=== PATIENT | male | born 1965 | race Caucasian/White ===

== ENCOUNTER 2021-03-26 21:23 | Emergency (ER) | payer OTHER ==
[~2021-03-26] VITALS: Ht 193 cm; Wt 117.3 kg
[2021-03-26 21:33] VITALS: BP 142/90
[2021-03-26] MEDS ORDERED: DIPH,PERTUSS(ACELL),TET VAC/PF 0.5 ML SYRINGE. VAX IM ONE (21:45)
[2021-03-26] MEDS ORDERED: LIDOCAINE 1%/EPI 1:100,000 20 ML VIAL. INJ ONE (21:45)
[2021-03-26] MEDS ORDERED: AMOX1TAB61 PO (23:07)
--- NOTE | 2021-03-26 23:08 | PHYS DOC ---
Past Medical History Past Surgical History: Other Additional Past Surgical Histo: HERNIA, DETACHED RETINA, CATARACT SURGERY, VASECTOMY, BLADDER CANCER Smoking Status: Current Every Day Smoker Alcohol Use: Rarely General Adult EDM: Chief Complaint: LACERATION/AVULSION HPI: HPI: Patient is a 56 year old male who presents with a laceration to his left hand. 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 The metal cut into his left palm. Left stellate laceration. Happened around 2 PM earlier today. He cleansed the area well with soap and water several times. Tetanus is not up-to-date. States that the piece of metal was dirty and greasy. Review of Systems: Review of Systems: Constitutional: Denies fever or chills. [] HENT: Denies nasal congestion or sore throat. [] Respiratory: Denies cough or shortness of breath. [] Cardiovascular: Denies chest pain Integument: Reports laceration to left palm Neurologic: Denies headache, focal weakness or sensory changes. [] Psychiatric: Denies depression or anxiety. [] Heart Score: C/O Chest Pain: No Risk Factors: Risk Factors: DM, Current or recent (<one month) smoker, HTN, HLP, family history of CAD, obesity. Risk Scores: Score 0 - 3: 2.5% MACE over next 6 weeks - Discharge Home Score 4 - 6: 20.3% MACE over next 6 weeks - Admit for Clinical Observation Score 7 - 10: 72.7% MACE over next 6 weeks - Early Invasive Strategies Current Medications: Current Medications Medications (Trade) Dose Ordered Sig/Yang Start Time Stop Time Status Last Admin Dose Admin Diphtheria/ Tetanus/Acell Pertussis (ADACEL TDap SYRINGE) 0.5 ml ONCE ONCE 03/26/21 21:45 03/26/21 21:47 DC 03/26/21 22:14 0.5 ML Lidocaine/ Epinephrine (LIDOCAINE 1%-EPI 1:100,000 Multi-Dose) 20 ml 1X ONCE 03/26/21 21:45 03/26/21 21:47 DC 03/26/21 22:13 20 ML Allergies: Allergies: Allergies Coded Allergies Type Severity Reaction Last Updated Verified No Known Drug Allergies 03/26/21 No Physical Exam: PE: Constitutional: Well developed, well nourished, no acute distress, non-toxic appearance. [] HENT: Normocephalic, atraumatic Eyes: conjunctiva normal, no discharge. [] Cardiovascular: Regular heart rate Lungs & Thorax: Normal work of breathing Skin: Stellate laceration to the left palm just distal to the thenar eminence. No foreign body. No evidence of muscular involvement. Fat protruding. Cap refill to all 5 fingers brisk, less than 2 seconds. Neurologic: Alert and oriented X 3, normal motor function, normal sensory function, no focal deficits noted. 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 Distal sensation to the fin gers intact. [] Psychologic: Affect normal, judgement normal, mood normal. [] Current Patient Data: Vital Signs: Vital Signs Date Time Temp Pulse Resp B/P (MAP) Pulse Ox O2 Delivery O2 Flow Rate FiO2 03/26/21 21:33 98.2 98 20 142/90 (107) 98 Room Air 98.2 EKG: EKG: [] Radiology/Procedures: Radiology/Procedures: Indication: Stellate laceration of the left palm Procedure: The patient was placed in the appropriate position and anesthesia around the laceration was anesthetized with 1% lidocaine with epinephrine. Good anesthesia was achieved with local. The area was then irrigated with copious amount of sterile saline.. The laceration was closed with 4-0 Prolene suture. Total number of sutures 10. Total repaired wound length: Accounting for all areas of the stellate laceration, approximately 8 cm repaired. Other Items: None The patient tolerated the procedure well. Complications: None.[] Course & Med Decision Making: Course & Med Decision Making Pertinent Labs and Imaging studies reviewed. (See chart for details) Patient 56-year-old male presents with a stellate laceration to his left hand. Cut on a greasy/dirty piece of steel. Neurovascularly intact. No evidence of foreign body. Still was intact, do not feel that x-ray would be beneficial in ruling out foreign body Closed as above. Tetanus updated. Given high risk of infection, will be put on prophylactic antibiotics with Augmentin. [id number] Moe Disclaimer: Moe Disclaimer: This electronic medical record was generated, in whole or in part, using a voice recognition dictation system. Departure Departure Impression: Primary Impression: Laceration of palm Disposition: HOME / SELF CARE / HOMELESS Condition: STABLE Referrals: NO PCP (PCP) Additional Instructions: We repaired your laceration with 10 sutures. These will need to come out in 7 to 10 days. Please schedule appointment with your primary care doctor, or visit in ED or urgent care to have these removed. Keep the area clean and dry. Keep it dressed. Use an ointment such as Neosporin or bacitracin on it. If you have increasing swelling, pain, redness, or warmth these are all signs of potential infection. If these occur please seek medical attention. For pain tylenol and ibuprofen are best used on a schedule. Please alternate between the two. -Tylenol 1000 mg every 6 hours (do not exceed 4000 mg in one day) -Ibuprofen 400 mg every 6 hours. Take with food. Do not take for more than 1 week. Please pick up attendant the antibiotic, Augmentin, and take as prescribed to prevent infection. Scripts Amoxicillin/Potassium Clav (AUGMENTIN 875-125 TABLET) 1 Each Tablet 1 TAB PO BID for 7 Days, #14 TAB 0 Refills Prov: JOSE DIANA MD 03/26/21 JOSE DIANA MD Mar 26, 2021 23:08
== END 2021-03-26 23:22 | disposition home or self-care (01) ==
LOC: ER 21:23
DX: S61.412A Laceration without foreign body of left hand, initial encounter (principal); F17.200 Nicotine dependence, unspecified, uncomplicated; W26.8XXA Contact with other sharp object(s), not elsewhere classified, initial encounter; Y92.69 Other specified industrial and construction area as the place of occurrence of the external cause; Y99.0 Civilian activity done for income or pay; Y93.89 Activity, other specified
CPT/HCPCS: 12004; 90471; 90715; 99283; J3490